=== PATIENT | male | born 1940 | race African-American/Black ===

== ENCOUNTER 2019-05-16 06:24 | Emergency (ER) | payer MEDICARE ==
[~2019-05-16] VITALS: Ht 180.3 cm; Wt 90.7 kg
[2019-05-16 06:24] VITALS: BP_SYST 156
[2019-05-16 07:24] LABS: EOSINOPHILS # (AUTO) 0.2 K/uL (0.0-0.4); EOSINOPHILS % (AUTO) 5.6 % (0.0-4.0); HEMATOCRIT 22.5 % (36-54); HEMOGLOBIN 7.2 g/dL (14.0-18.0); LYMPHOCYTES % (AUTO) 29.5 % (20.5-51.5); MEAN CORPUSCULAR HEMOGLOBIN 30 pg (27-31); MEAN CORPUSCULAR HGB CONC 32 % (32-36); MEAN CORPUSCULAR VOLUME 93 fL (79.0-98.0); MONOCYTES # (AUTO) 0.4 K/uL (0.0-1.0); NEUTROPHILS # (AUTO) 1.8 K/uL (1.8-7.7); NEUTROPHILS % (AUTO) 51.9 % (40.0-70.0); PLATELET COUNT (AUTO) 215 K/uL (130-430); RED BLOOD CELL COUNT(AUTO) 2.42 MIL/uL (4.2-6.2); WHITE BLOOD COUNT (AUTO) 3.6 K/uL (4.8-10.8)
[2019-05-16 08:13] LABS: ANION GAP 10 (5-15); CALCIUM 8.9 mg/dL (8.4-11.0); CHLORIDE 96 mmol/L (98-107); CREATININE 3.85 mg/dL (0.55-1.30); GLUCOSE 94 mg/dL (70-99); SODIUM SERUM 135 mmol/L (136-145); UREA NITROGEN, BLOOD 71 mg/dL (8-21)
[2019-05-16 08:20] LABS: ALANINE AMINOTRANSFERASE 6 U/L (12-78); ALBUMIN 2.1 g/dL (3.4-4.8); AMYLASE 32 U/L (0-100); ASPARTATE AMINOTRANSFERASE 20 U/L (10-37); LIPASE 48 U/L (73-393); TOTAL BILIRUBIN 0.4 mg/dL (0.0-1.0)
[2019-05-16] MEDS ORDERED: MORPHINE 4 MG/ML INJ. SYRINGE IVP ONE (08:30)
[2019-05-16] MEDS ORDERED: ONDANSETRON HCL 4 MG/2 ML VIAL IVP ONE (08:30)
[2019-05-16] MEDS ORDERED: NACL 0.9% 1,000 ML IV ONE (08:30)
[2019-05-16 08:31] LABS: POTASSIUM 2.8 mmol/L (3.5-5.1)
[2019-05-16 08:33] LABS: INR 4.8 (0.80-1.20); PROTHROMBIN TIME 47.3 SECS (9.5-12.5)
[2019-05-16] MEDS ORDERED: KCL 20 mEq in 100 mL (PREMIX) 100 ML IV ONE (08:45)
[2019-05-16] MEDS ORDERED: POTASSIUM CHLORIDE 20 MEQ/PKT PACKET PO ONE (10:15)
[2019-05-16 13:45] VITALS: BP_SYST 135
== END 2019-05-16 13:00 | disposition home or self-care (01) ==
LOC: SED 06:24
DX: K59.00 Constipation, unspecified (principal); T45.511A Poisoning by anticoagulants, accidental (unintentional), initial encounter; I10 Essential (primary) hypertension; I25.2 Old myocardial infarction; Y92.89 Other specified places as the place of occurrence of the external cause
CPT/HCPCS: 36415; 71045; 74176; 80053; 82150; 83605; 83690; 85025; 85610; 85730; 87040; 96374; 96375; 99285; J2270; J2405; J3480; J7030